=== PATIENT | male | born 1975 | race Caucasian/White ===

== ENCOUNTER 2021-06-07 06:00 | Day surgery (SDC) | payer OTHER ==
[~2021-06-07 06:00] MED LIST: CHOLESTYRAMINE P4 GM PO; IMODIUM PO; INTESTINEX1 CA1 PO; OXYC1TAB9 PO
== END 2021-06-07 13:30 | disposition home or self-care (01) ==
LOC: AMB-ENDOS 06:00
PROVIDERS: ATTEND Surgery
DX: K62.4 Stenosis of anus and rectum (principal); Z20.822 Contact with and (suspected) exposure to COVID-19